=== PATIENT | female | born 1995 | race Hispanic/Latino ===

== ENCOUNTER 2018-10-14 05:34 | Emergency (ER) | payer SELFPAY ==
[2018-10-14 05:48] VITALS: O2SAT 100
[2018-10-14] MEDS ORDERED: Sodium Chloride 0.9% 1,000 ML IV STA (05:53)
--- NOTE | 2018-10-14 06:13 | ED PDOC ---
HPI: Abdomen Time Seen by Provider: 10/14/18 05:51 Chief Complaint (Nursing): Abdominal Pain Chief Complaint (Provider): Abdominal Pain History Per: Patient History/Exam Limitations: no limitations Onset/Duration Of Symptoms: Days Quality Of Discomfort: "Pain" Last Bowel Movement: Yesterday Additional Complaint(s): 23 year old female presents to the ED for an evaluation for abdominal pain onset for 2 weeks associated with nausea. The pain is located to where she has a cyst on her right ovary. Patient reports she smoked marijuana earlier today. Also reports of constipation and her last bowel movement was yesterday. Otherwise, patient denies dysuria, diarrhea, vomiting or vaginal bleeding. LNMP: 09/17/18 PMD: no family provider Abnormal Vaginal Bleeding: No Last Menstral Period: 09/17/18 Past Medical History Reviewed: Historical Data, Nursing Documentation, Vital Signs Vital Signs: Last Vital Signs Temp 98.3 F 10/14/18 05:47 Pulse 82 10/14/18 05:47 Resp 17 10/14/18 05:47 BP 110/73 10/14/18 05:47 Pulse Ox 100 10/14/18 05:47 Primary Care Provider: FAMILY PROVIDER,NO - Medical History PMH: No Chronic Diseases Denies: Kidney Stones - Family History Family History: States: Unknown Family Hx - Social History Drugs: Cannabis - Home Medications Home Medications: Ambulatory Orders Medication Instructions Recorded Docusate [Colace] 100 mg PO BID #20 cap 10/11/15 Ibuprofen [Motrin] 600 mg PO TID PRN #30 tab 10/11/15 Polyethylene Glycol 3350 [Miralax] 17 gm PO BID 10 Days 10/11/15 Docusate Sodium [Colace] 100 mg PO DAILY #30 capsule 10/14/18 Nitrofurantoin Macrocrystals 100 mg PO BID #10 cap 10/14/18 [Macrobid] Phenazopyridine HCl [Pyridium] 100 mg PO TID #6 tablet 10/14/18 - Allergies Allergies/Adverse Reactions: Allergies Allergy/AdvReac Type Severity Reaction Status Date / Time No Known Allergies Allergy Verified 10/14/18 05:48 Review of Systems ROS Statement: Except As Marked, All Systems Reviewed And Found Negative Gastrointestinal: Positive for: Nausea, Abdominal Pain, Constipation. Negative for: Vomiting Genitourinary Female: Negative for: Dysuria, Vaginal Bleeding Physical Exam - Reviewed Nursing Documentation Reviewed: Yes Vital Signs Reviewed: Yes - Physical Exam Appears: Positive for: Non-toxic, No Acute Distress Head Exam: Positive for: ATRAUMATIC, NORMAL INSPECTION, NORMOCEPHALIC Skin: Positive for: Normal Color, Warm, Dry. Negative for: Rash Eye Exam: Positive for: EOMI, Normal appearance, PERRL ENT: Positive for: Normal ENT Inspection Neck: Positive for: Normal, Painless ROM, Supple. Negative for: Decreased ROM Cardiovascular/Chest: Positive for: Regular Rate, Rhythm. Negative for: Murmur Respiratory: Positive for: Normal Breath Sounds. Negative for: Respiratory D istress Gastrointestinal/Abdominal: Positive for: Normal Exam, Soft. Negative for: Tenderness, Mass, Guarding, Rebound Back: Positive for: Normal Inspection Extremity: Positive for: Normal ROM. Negative for: Tenderness, Pedal Edema, Deformity Neurological/Psych: Positive for: Awake, Alert, Normal Tone, Oriented (x3) - Laboratory Results Result Diagrams: 10/14/18 06:20 10/14/18 06:20 - ECG O2 Sat by Pulse Oximetry: 100 (RA) Pulse Ox Interpretation: Normal Medical Decision Making Medical Decision Making: Time: 551 Impression: abdominal discomfort and nausea with history of ovarian cyst and constipation. Will obtain CT imaging based on labs and improvement with medication. 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 I have reviewed the chart and agree that the record accurately reflects my personal performance of the history, physical exam, medical decision making, and the department course for this patient. I have also personally directed, reviewed, and agree with the discharge instructions and disposition. Disposition - Clinical Impression Clinical Impression: Urinary tract infection - Disposition Referrals: [facility] [Outside] Disposition Time: 05:52 Condition: IMPROVED Additional Instructions: Follow up with the [facility] [place] for evaluation of ovarian cysts. Take Colace daily to prevent constipation. Take the antibiotic twice per day for a urinary tract infection. Return to the emergency department if symptoms worsen or if new symptoms develop. Prescriptions: Docusate Sodium [Colace] 100 mg PO DAILY #30 capsule Nitrofurantoin Macrocrystals [Macrobid] 100 mg PO BID #10 cap Phenazopyridine HCl [Pyridium] 100 mg PO TID #6 tablet Instructions: Urinary Tract Infection, Adult (DC) Forms: [facility] (Lithuanian)
[2018-10-14 06:34] LABS: SQUAMOUS EPITHIAL 4 /hpf (0-5); URINE BILIRUBIN NEGATIVE (NEGATIVE); URINE BLOOD NEGATIVE (NEGATIVE); URINE CLARITY SLIGHTY-CLOUDY (Clear); URINE COLOR STRAW (YELLOW); URINE GLUCOSE (UA) NEG (NEGATIVE); URINE LEUKOCYTE ESTERASE MOD Leu/uL (Negative); URINE PROTEIN NEGATIVE (NEGATIVE); URINE UROBILINOGEN 0.2-1.0 mg/dL (0.2-1.0)
[2018-10-14 06:37] LABS: BASO # 0.1 K/uL (0.0-0.2); EOS # 0.3 K/uL (0.0-0.7); EOS % 2.6 % (0.0-4.0); HEMOGLOBIN 12.6 g/dL (12.0-16.0); LYMPH # 3.7 K/uL (1.0-4.3); LYMPH % 38.5 % (20.0-40.0); MEAN CELL VOLUME 88.5 fl (81.0-99.0); MEAN CORPUSCULAR HEMOGLOBIN 30.1 pg (27.0-31.0); MEAN PLATELET VOLUME 9.9 fl (7.2-11.7); MONO # 0.8 K/uL (0.0-0.8); MONO % 8.8 % (0.0-10.0); NEUT # 4.7 K/uL (1.8-7.0); NEUT % 49.1 % (50.0-75.0); NRBC % 0.1 % (0.0-0.0); RBC 4.2 Mil/uL (3.80-5.20); RED CELL DISTRIBUTION WIDTH 12.8 % (11.5-14.5); WHITE BLOOD COUNT 9.7 K/uL (4.8-10.8)
[2018-10-14 06:42] LABS: ALB/GLOB RATIO 1.5 (1.0-2.1); ALBUMIN 4.3 g/dL (3.5-5.0); ALT/SGPT 27 U/L (9-52); AST/SGOT 25 U/L (14-36); BLOOD UREA NITROGEN 18 mg/dl (7-17); CALCIUM 8.9 mg/dL (8.4-10.2); GFR NON-AFRICAN AMERICAN > 60
[2018-10-14 06:59] VITALS: BP 103/69; PULSE 75; RESP 16; TEMP 97.8
== END 2018-10-14 07:01 | disposition home or self-care (01) ==
LOC: H.ER 05:34
DX: N39.0 Urinary tract infection, site not specified (principal); N83.209 Unspecified ovarian cyst, unspecified side; Z79.899 Other long term (current) drug therapy
CPT/HCPCS: 80053; 81003; 81025; 85025; 96361; 96374; 99284; J2405; J7030